=== PATIENT | female | born 1990 | race Caucasian/White ===

== ENCOUNTER 2017-11-09 17:48 | Emergency (ER) | payer SELFPAY ==
[~2017-11-09] VITALS: Ht 162.6 cm; Wt 77.1 kg
[2017-11-09 18:02] VITALS: BP_SYST 119
[2017-11-09] MEDS ORDERED: traMADol HCL HCL 50 MG TABLET (ULTRAM) PO ONE (18:45)
[2017-11-09 19:10] VITALS: BP_SYST 119
== END 2017-11-09 19:03 | disposition home or self-care (01) ==
LOC: SED 17:48
DX: M54.30 Sciatica, unspecified side (principal); M75.22 Bicipital tendinitis, left shoulder; K21.9 Gastro-esophageal reflux disease without esophagitis; G43.909 Migraine, unspecified, not intractable, without status migrainosus; Z90.49 Acquired absence of other specified parts of digestive tract; Z98.51 Tubal ligation status
CPT/HCPCS: 99283